=== PATIENT | female | born 1960 | race Caucasian/White ===

== ENCOUNTER → 2017-01-13 | Outpatient (CLI) | payer BC ==
[~2017-01-13] MED LIST: AMBIEN PO; AMBIEN10 MG PO; CIPRO250 M1 PO; FLOMAX0.4 M1 PO; PERCOCET PO; SYNTHROID PO; SYNTHROID125 PO
--- NOTE | ~2017-01-13 | CR151 ---
[facility] A Service of [facility] & [facility] RADIOLOGY TEXT RESULTS PATIENT: ASHLEY MCCALLUM LOCATION: [facility] : 64 UNIT #: [id number] AGE: [address]: Javier Alcantar MD SEX: F ORDER DR: [id number] [facility] [address] [place], [place] [address] [id number] O MR#: [id number] Acc #: [id number] NAME: ASHLEY MCCALLUM : 1960 SEX: F STUDY DATE/TIME: 01/13/2017 13:03 UNIT: [facility] ROOM: STUDY DESCRIPTION: CR Hip Min 2 Views Rt Attending Physician: Javier Alcantar M.D. Referring Physician: Javier Alcantar M.D. Ordering Physician: Javier Alcantar M.D. Primary Care Physician: No Primary Care Physician MEDICAL IMAGING REPORT This report is preliminary unless electronic signature is present EXAM Right hip 01/13/2017 HISTORY 56-year-old female with chronic right hip pain for several years. Pain worsening over last [address] abdomen and pelvis 06/09/2015 FINDINGS 3 views of the right hip demonstrate no acute fracture or dislocation. Bony pelvis intact. Sacrum and SI joints intact. Joint spaces appear adequately maintained. IMPRESSION Unremarkable right hip. Dictated by... Javier Neves M.D. THIS IS AN ELECTRONICALLY VERIFIED REPORT Javier Neves M.D. at 01/14/2017 5:01 PM EDYTA/kyaw TD: 01/13/2017 18:31 JOB #: [id number] MEDICAL IMAGING REPORT Page 1 of 1 COPY
== END | disposition home or self-care (01) ==
LOC: CRAD 12:14
DX: M16.11 Unilateral primary osteoarthritis, right hip (principal)
CPT/HCPCS: 73502